=== PATIENT | female | born 1985 ===

== ENCOUNTER 2025-01-13 16:31 | Outpatient (REF) | payer BC, SELFPAY | END 2025-01-13 16:32 | disposition home or self-care (01) | LOC: LBN 16:31 | PROVIDERS: Visit Provider Nurse Practitioner Family | DX: N30.01 Acute cystitis with hematuria (principal); B96.29 Other Escherichia coli [E. coli] as the cause of diseases classified elsewhere | CPT/HCPCS: 87077; 87086; 87186 ==

== ENCOUNTER 2025-04-06 02:37 | Outpatient (CLI) | payer BC, SELFPAY ==
[2025-04-06 13:44] LABS: ALT 48 U/L (10-49); AST 33 U/L (<34); Albumin 4.4 g/dL (3.4-5.0); Alkaline Phosphatase 103 U/L (46-116); Anion Gap 8 mmol/L (3-11); BUN 11 mg/dL (9-23); Bilirubin, Total 0.60 mg/dL (0.2-1.2); CO2 28.0 mmol/L (20.0-31.0); Calcium 8.8 mg/dL (8.3-10.6); Chloride 107 mmol/L (98-107); Cholesterol 181 mg/dL (<200); Glucose 92 mg/dL (74-106); HDL Cholesterol 57 mg/dL (>40); Potassium 4.1 mmol/L (3.5-5.1); Sodium 143 mmol/L (136-145); Total Protein 8.0 g/dL (5.7-8.2)
[2025-04-06 13:45] LABS: Hemoglobin A1C 5.7 % (<5.7)
[2025-04-06 18:45] LABS: Hepatitis C Ab w Rflx HCV PCR Negative (Negative)
== END 2025-04-06 02:38 | disposition home or self-care (01) ==
PROVIDERS: Visit Provider Nurse Practitioner Family
DX: E66.9 Obesity, unspecified (principal); E78.5 Hyperlipidemia, unspecified; Z11.59 Encounter for screening for other viral diseases
CPT/HCPCS: 36415; 80053; 80061; 86803; 83036